=== PATIENT | female | born 1960 | race American Indian/Alaskan Native ===

== ENCOUNTER 2021-08-25 01:25 | Inpatient (IN) | payer BC ==
--- NOTE | 2021-08-25 01:49 | Emergency Department Report ---
ED Seizure HPI - General Stated Complaint: SEIZURE Time Seen by Provider: 08/25/21 01:40 Source: patient, family, EMS Mode of arrival: Stretcher Limitations: No Limitations - History of Present Illness Initial Comments: 60-year-old female with past medical history of hypertension and lupus presents to the hospital with possible new onset seizure. at the bedside. State s that they were lying in bed and patient had generalized shaking for approximately 5 to 10 minutes. EMS reports patient was postictal upon their arrival. Patient became more responsive in route to the hospital. She is currently drowsy with slow speech but oriented x3. She does not recall EMS ar rival to the home. She complains of a mild headache but otherwise denies any symptoms currently or preceding symptoms. She denies new medications, alcohol, or drug use. She did not bite her tongue or urinate on herself during episode. EMS Accu-Chek 95 - Related Data Allergies Allergy/AdvReac Type Severity Reaction Status Date / Time No Known Allergies Allergy Unverified 08/25/21 02:13 ED Review of Systems ROS: Stated complaint: SEIZURE Other details as noted in HPI Comment: All other systems reviewed and negative ED Physical Exam - Other Other exam information: General: No acute distress Head: Atraumatic Eyes: normal appearance ENT: Moist mucous membranes Neck: Normal appearance, no midline tenderness Chest: Clear to auscultation bilaterally CV: Regular rate and rhythm Abdomen: Soft, normal bowel sounds, nontender, nondistended, no rebound or guarding Back: Normal inspection Extremity: Normal inspection, full range of motion Neuro: Alert O x 3, no facial asymmetry, speech clear, equal handgrip and foot dorsiflexion Psych: Appropriate behavior Skin: No rash ED Course Vital Signs 08/25/21 03:21 Temperature 98.5 F Pulse Rate 95 H Respiratory 16 Rate Blood Pressure 179/105 [Left] O2 Sat by Pulse 99 Oximetry - Consultations Consultation #1: 08/25/21 03:09 case d/w DR Kemp tele neuro via phone, rec admission for MRI ED Medical Decision Making - Lab Data Result diagrams: 08/25/21 01:58 08/25/21 01:58 Lab Results 08/25/21 08/25/21 08/25/21 Range/Units 01:46 01:46 01:58 WBC 13.2 H (4.5-11.0) K/mm3 RBC 3.82 (3.65-5.03) M/mm3 Hgb 11.6 (10.1-14.3) gm/dl Hct 34.1 (30.3-42.9) % MCV 90 (79-97) fl MCH 30 (28-32) pg MCHC 34 (30-34) % RDW 13.8 (13.2-15.2) % Plt Count 272 (140-440) K/mm3 Lymph % (Auto) 17.8 (13.4-35.0) % [place] % (Auto) 4.9 (0.0-7.3) % Eos % (Auto) 0.8 (0.0-4.3) % Baso % (Auto) 0.2 (0.0-1.8) % Lymph # (Auto) 2.4 (1.2-5.4) K/mm3 [place] # (Auto) 0.6 (0.0-0.8) K/mm3 Eos # (Auto) 0.1 (0.0-0.4) K/mm3 Baso # (Auto) 0.0 (0.0-0.1) K/mm3 Seg Neutrophils % 76.3 H (40.0-70.0) % Seg Neutrophils # 10.1 H (1.8-7.7) K/mm3 Sodium (137-145) mmol/L Potassium (3.6-5.0) mmol/L Chloride (98-107) mmol/L Carbon Dioxide (22-30) mmol/L Anion Gap mmol/L BUN (7-17) mg/dL Creatinine (0.6-1.2) mg/dL Estimated GFR ml/min BUN/Creatinine Ratio % Glucose (65-100) mg/dL Calcium (8.4-10.2) mg/dL Magnesium (1.7-2.3) mg/dL Total Bilirubin (0.1-1.2) mg/dL AST (5-40) units/L ALT (7-56) units/L Alkaline Phosphatase (35-129) units/L Total Protein (6.3-8.2) g/dL Albumin (3.9-5) g/dL Albumin/Globulin Ratio % Urine Color Straw (Yellow) Urine Turbidity Clear (Clear) Urine pH 7.0 (5.0-7.0) Ur Specific [place] 1.012 (1.003-1.030) Urine Protein 30 mg/dl (Negative) mg/dL Urine Glucose (UA) Neg (Negative) mg/dL Urine Ketones Neg (Negative) mg/dL Urine Blood Neg (Negative) Urine Nitrite Neg (Negative) Urine Bilirubin Neg (Negative) Urine Urobilinogen < 2.0 (<2.0) mg/dL Ur Leukocyte Esterase Sm (Negative) Urine WBC (Auto) 2.0 (0.0-6.0) /HPF Urine RBC (Auto) 1.0 (0.0-6.0) /HPF U Epithel Cells (Auto) 7.0 (0-13.0) /HPF Hyaline Casts 2 /LPF Urine Mucus Few /HPF Urine Opiates Screen Negative Urine Methadone Screen Negative Ur Barbiturates Screen Negative Ur Phencyclidine Scrn Negative Ur Amphetamines Screen Negative U Benzodiazepines Scrn Negative Urine Cocaine Screen Negative Plasma/Serum Alcohol (0-0.07) % 08/25/21 08/25/21 08/25/21 Range/Units 01:58 01:58 01:58 WBC (4.5-11.0) K/mm3 RBC (3.65-5.03) M/mm3 Hgb (10.1-14.3) gm/dl Hct (30.3-42.9) % MCV (79-97) fl MCH (28-32) pg MCHC (30-34) % RDW (13.2-15.2) % Plt Count (140-440) K/mm3 Lymph % (Auto) (13.4-35.0) % [place] % (Auto) (0.0-7.3) % Eos % (Auto) (0.0-4.3) % Baso % (Auto) (0.0-1.8) % Lymph # (Auto) (1.2-5.4) K/mm3 [place] # (Auto) (0.0-0.8) K/mm3 Eos # (Auto) (0.0-0.4) K/mm3 Baso # (Auto) (0.0-0.1) K/mm3 Seg Neutrophils % (40.0-70.0) % Seg Neutrophils # (1.8-7.7) K/mm3 Sodium 141 (137-145) mmol/L Potassium 3.0 L (3.6-5.0) mmol/L Chloride 101.6 (98-107) mmol/L Carbon Dioxide 23 (22-30) mmol/L Anion Gap 19 mmol/L BUN 15 (7-17) mg/dL Creatinine 0.7 (0.6-1.2) mg/dL Estimated GFR > 60 ml/min BUN/Creatinine Ratio 21 % Glucose 127 H (65-100) mg/dL Calcium 9.2 (8.4-10.2) mg/dL Magnesium 1.80 (1.7-2.3) mg/dL Total Bilirubin 0.20 (0.1-1.2) mg/dL AST 31 (5-40) units/L ALT 8 (7-56) units/L Alkaline Phosphatase 79 (35-129) units/L Total Protein 8.1 (6.3-8.2) g/dL Albumin 4.2 (3.9-5) g/dL Albumin/Globulin Ratio 1.1 % Urine Color (Yellow) Urine Turbidity (Clear) Urine pH (5.0-7.0) Ur Specific [place] (1.003-1.030) Urine Protein (Negative) mg/dL Urine Glucose (UA) (Negative) mg/dL Urine Ketones (Negative) mg/dL Urine Blood (Negative) Urine Nitrite (Negative) Urine Bilirubin (Negative) Urine Urobilinogen (<2.0) mg/dL Ur Leukocyte Esterase (Negative) Urine WBC (Auto) (0.0-6.0) /HPF Urine RBC (Auto) (0.0-6.0) /HPF U Epithel Cells (Auto) (0-13.0) /HPF Hyaline Casts /LPF Urine Mucus /HPF Urine Opiates Screen Urine Methadone Screen Ur Barbiturates Screen Ur Phencyclidine Scrn Ur Amphetamines Screen U Benzodiazepines Scrn Urine Cocaine Screen Plasma/Serum Alcohol < 0.01 (0-0.07) % - EKG Data -: EKG Interpreted by Me EKG shows normal: sinus rhythm, ST-T waves (lvh with repol) Rate: normal (86) - EKG Data When compared to previous EKG there are: previous EKG unavailable - Radiology Data Radiology results: report reviewed CT HEAD WITHOUT CONTRAST INDICATION / CLINICAL INFORMATION: new onset seizure. TECHNIQUE: CT head was performed without administration of intravenous contrast. All CT scans at this location are performed using CT dose reduction for ALARA by means of automated exposure control. COMPARISON: None available. FINDINGS: CEREBRAL HEMISPHERES: There is no evidence of large territorial infarction or significant abnormality of zepeda-white matter differentiation. Ventricles within normal limits. No midline shift. Basal cisterns patent. HEMORRHAGE: None. CEREBELLUM / BRAINSTEM: No significant abnormality. ORBITS: No significant abnormality. SOFT TISSUES: No significant abnormality. SKULL: No significant abnormality. PARANASAL SINUSES / MASTOID AIR CELLS: Normal as visualized. ADDITIONAL FINDINGS: None. IMPRESSION: 1. No acute intracranial abnormality. - Medical Decision Making 60-year-old female presents to the hospital with new onset seizure. History of lupus. ED work-up reveals normal CT head and mild hypokalemia. P.o. potassium ordered. Patient provided IV Keppra. Given history of lupus she will be admitted to the hospital for further imaging/MRI brain to rule out acute pathology - Differential Diagnosis New onset seizure, intracranial abnormality, electrolyte abnl, arrhythmia Critical Care Time: No Critical care attestation.: If time is entered above; I have spent that time in minutes in the direct care of this critically ill patient, excluding procedure time. ED Disposition Clinical Impression: New onset seizure, Lupus, Hypokalemia Disposition: ADMITTED INPATIENT Is pt being admited?: Yes Condition: Stable Referrals: PRIMARY CAREMD [Primary Care Provider] - 3-5 Days Time of Disposition: 03:09
[2021-08-25 02:19] LABS: Basophils % (Auto) 0.2 % (0.0-1.8); Eosinophils # (Auto) 0.1 K/mm3 (0.0-0.4); Eosinophils % (Auto) 0.8 % (0.0-4.3); Hematocrit 34.1 % (30.3-42.9); Hemoglobin 11.6 gm/dl (10.1-14.3); Lymphocytes # (Auto) 2.4 K/mm3 (1.2-5.4); Lymphocytes % (Auto) 17.8 % (13.4-35.0); Mean Corpuscular HGB Conc 34 % (30-34); Mean Corpuscular Volume 90 fl (79-97); Monocytes # (Auto) 0.6 K/mm3 (0.0-0.8); Monocytes % (Auto) 4.9 % (0.0-7.3); Platelet Count 272 K/mm3 (140-440); Red Blood Count 3.82 M/mm3 (3.65-5.03); Red Cell Distribution Width 13.8 % (13.2-15.2)
--- NOTE | 2021-08-25 02:20 | Cat Scan Report ---
CT HEAD WITHOUT CONTRAST INDICATION / CLINICAL INFORMATION: new onset seizure. TECHNIQUE: CT head was performed without administration of intravenous contrast. All CT scans at this location are performed using CT dose reduction for ALARA by means of automated exposure control. COMPARISON: None available. FINDINGS: CEREBRAL HEMISPHERES: There is no evidence of large territorial infarction or significant abnormality of zepeda-white matter differentiation. Ventricles within normal limits. No midline shift. Basal ciste rns patent. HEMORRHAGE: None. CEREBELLUM / BRAINSTEM: No significant abnormality. ORBITS: No significant abnormality. SOFT TISSUES: No significant abnormality. SKULL: No significant abnormality. PARANASAL SINUSES / MASTOID AIR CELLS: Normal as visualized. ADDITIONAL FINDINGS: None. IMPRESSION: 1. No acute intracranial abnormality. Signer Name: Dell Henry II, MD Signed: 08/25/2021 2:16 AM Workstation Name: [id number]
[2021-08-25 02:34] LABS: Alanine Aminotransferase 8 units/L (7-56); Albumin 4.2 g/dL (3.9-5); Blood Urea Nitrogen 15 mg/dL (7-17); Calcium 9.2 mg/dL (8.4-10.2); Hemolysis Index 6
[2021-08-25 02:35] LABS: BUN/Creatinine Ratio 21
[2021-08-25] MEDS ORDERED: POTASSIUM CHLORIDE ER 20 MEQ TAB PO ONE (02:38)
[2021-08-25] MEDS ORDERED: levETIRAcetam 1000 MG/NS 0.75% 1,000 MG/100 ML BAG IV ONE (02:46)
[2021-08-25 02:52] LABS: Bilirubin,Urine NEG (Negative); Blood,Urine NEG (Negative); Color,Urine Straw (Yellow); Urobilinogen,Urine < 2.0 mg/dL (<2.0)
[2021-08-25 03:01] LABS: Amphetamine Screen,Urine Negative; Benzodiazepines Screen,Urine Negative; Cocaine Screen,Urine Negative; Methadone Screen,Urine Negative; Opiate Screen,Urine Negative
[2021-08-25 03:16] LABS: Hyaline Casts,Urine 2 /LPF; Mucus,Urine FEW /HPF
[2021-08-25 03:31] LABS: Cannabinoid Screen,Urine Positive
[2021-08-25] MEDS ORDERED: ALBUTEROL 2.5 MG/3 ML NEBU IH PRN (05:21)
[2021-08-25] MEDS ORDERED: MORPHINE 4 MG/1 ML INJ IV PRN (05:21)
[2021-08-25] MEDS ORDERED: MORPHINE 2 MG/1 ML INJ IV PRN (05:21)
--- NOTE | 2021-08-25 05:31 | History and Physical Report ---
History of Present Illness Date of examination: 08/25/21 Date of admission: 08/25/21 Chief complaint: Seizure History of present illness: 60-year-old female with history of hypertension and lupus and marijuana abuse was brought to the emergency room because of new onset seizure. Patient were lying in bed and patient had generalized shaking for approximately 5 to 10 minutes. EMS reports patient was postictal upon their arrival. Patient became more responsive in route to the hospital. She is currently drowsy with slow speech but oriented x3. She does not recall EMS arrival to the home. She complains of a mild headache but otherwise denies any symptoms currently or preceding symptoms. She denies new medications, alcohol, or drug use. She did not bite her tongue or urinate on herself during episode. EMS Accu-Chek 95 In the emergency room initial CT scan of the head shows no acute intracranial abnormality. Patient urine drug screen is positive for marijuana. Subsequently patient was seen and evaluated by telemetry neurology. Past History Past Medical History: hypertension, other (Lupus) Past Surgical History: No surgical history Social history: other (Marijuana abuse) Family history: no significant family history Medications and Allergies Allergies Allergy/AdvReac Type Severity Reaction Status Date / Time No Known Allergies Allergy Unverified 08/25/21 02:13 Review of Systems All systems: negative Constitutional: malaise, lethargy, other (Seizure) Exam - Constitutional Vitals: Temp Pulse Resp BP Pulse Ox 98.5 F 95 H 16 179/105 99 08/25/21 03:21 08/25/21 03:21 08/25/21 03:21 08/25/21 03:21 08/25/21 03:21 General appearance: Present: no acute distress, well-nourished - EENT Eyes: Present: PERRL ENT: hearing intact, clear oral mucosa - Neck Neck: Present: supple, normal ROM - Respiratory Respiratory effort: normal Respiratory: bilateral: CTA - Cardiovascular Heart Sounds: Present: S1 & S2. Absent: rub, click - Extremities Extremities: pulses symmetrical, No edema Peripheral Pulses: within normal limits - Abdominal General gastrointestinal: Present: soft, non-tender, non-distended, normal bowel sounds Female genitourinary: Present: normal - Integumentary Integumentary: Present: clear, warm, dry - Musculoskeletal Musculoskeletal: gait normal, strength equal bilaterally - Psychiatric Psychiatric: appropriate mood/affect, intact judgment & insight - Neurologic Neurologic: CNII-XII intact, moves all extremities Results - Labs CBC & Chem 7: 08/25/21 01:58 08/25/21 01:58 Labs: Laboratory Last Values WBC 13.2 K/mm3 (4.5-11.0) H 08/25/21 01:58 RBC 3.82 M/mm3 (3.65-5.03) 08/25/21 01:58 Hgb 11.6 gm/dl (10.1-14.3) 08/25/21 01:58 Hct 34.1 % (30.3-42.9) 08/25/21 01:58 MCV 90 fl (79-97) 08/25/21 01:58 MCH 30 pg (28-32) 08/25/21 01:58 MCHC 34 % (30-34) 08/25/21 01:58 RDW 13.8 % (13.2-15.2) 08/25/21 01:58 Plt Count 272 K/mm3 (140-440) 08/25/21 01:58 Lymph % (Auto) 17.8 % (13.4-35.0) 08/25/21 01:58 [place] % (Auto) 4.9 % (0.0-7.3) 08/25/21 01:58 Eos % (Auto) 0.8 % (0.0-4.3) 08/25/21 01:58 Baso % (Auto) 0.2 % (0.0-1.8) 08/25/21 01:58 Lymph # (Auto) 2.4 K/mm3 (1.2-5.4) 08/25/21 01:58 [place] # (Auto) 0.6 K/mm3 (0.0-0.8) 08/25/21 01:58 Eos # (Auto) 0.1 K/mm3 (0.0-0.4) 08/25/21 01:58 Baso # (Auto) 0.0 K/mm3 (0.0-0.1) 08/25/21 01:58 Seg Neutrophils % 76.3 % (40.0-70.0) H 08/25/21 01:58 Seg Neutrophils # 10.1 K/mm3 (1.8-7.7) H 08/25/21 01:58 Sodium 141 mmol/L (137-145) 08/25/21 01:58 Potassium 3.0 mmol/L (3.6-5.0) L 08/25/21 01:58 Chloride 101.6 mmol/L (98-107) 08/25/21 01:58 Carbon Dioxide 23 mmol/L (22-30) 08/25/21 01:58 Anion Gap 19 mmol/L 08/25/21 01:58 BUN 15 mg/dL (7-17) 08/25/21 01:58 Creatinine 0.7 mg/dL (0.6-1.2) 08/25/21 01:58 Estimated GFR > 60 ml/min 08/25/21 01:58 BUN/Creatinine Ratio 21 % 08/25/21 01:58 Glucose 127 mg/dL (65-100) H 08/25/21 01:58 Calcium 9.2 mg/dL (8.4-10.2) 08/25/21 01:58 Magnesium 1.80 mg/dL (1.7-2.3) 08/25/21 01:58 Total Bilirubin 0.20 mg/dL (0.1-1.2) 08/25/21 01:58 AST 31 units/L (5-40) 08/25/21 01:58 ALT 8 units/L (7-56) 08/25/21 01:58 Alkaline Phosphatase 79 units/L (35-129) 08/25/21 01:58 Total Protein 8.1 g/dL (6.3-8.2) 08/25/21 01:58 Albumin 4.2 g/dL (3.9-5) 08/25/21 01:58 Albumin/Globulin Ratio 1.1 % 08/25/21 01:58 Urine Color Straw (Yellow) 08/25/21 01:46 Urine Turbidity Clear (Clear) 08/25/21 01:46 Urine pH 7.0 (5.0-7.0) 08/25/21 01:46 Ur Specific [place] 1.012 (1.003-1.030) 08/25/21 01:46 Urine Protein 30 mg/dl mg/dL (Negative) 08/25/21 01:46 Urine Glucose (UA) Neg mg/dL (Negative) 08/25/21 01:46 Urine Ketones Neg mg/dL (Negative) 08/25/21 01:46 Urine Blood Neg (Negative) 08/25/21 01:46 Urine Nitrite Neg (Negative) 08/25/21 01:46 Urine Bilirubin Neg (Negative) 08/25/21 01:46 Urine Urobilinogen < 2.0 mg/dL (<2.0) 08/25/21 01:46 Ur Leukocyte Esterase Sm (Negative) 08/25/21 01:46 Urine WBC (Auto) 2.0 /HPF (0.0-6.0) 08/25/21 01:46 Urine RBC (Auto) 1.0 /HPF (0.0-6.0) 08/25/21 01:46 U Epithel Cells (Auto) 7.0 /HPF (0-13.0) 08/25/21 01:46 Hyaline Casts 2 /LPF 08/25/21 01:46 Urine Mucus Few /HPF 08/25/21 01:46 Urine Opiates Screen Negative 08/25/21 01:46 Urine Methadone Screen Negative 08/25/21 01:46 Ur Barbiturates Screen Negative 08/25/21 01:46 Ur Phencyclidine Scrn Negative 08/25/21 01:46 Ur Amphetamines Screen Negative 08/25/21 01:46 U Benzodiazepines Scrn Negative 08/25/21 01:46 Urine Cocaine Screen Negative 08/25/21 01:46 U Marijuana (THC) Screen Positive 08/25/21 01:46 Drugs of Abuse Note Disclamer 08/25/21 01:46 Plasma/Serum Alcohol < 0.01 % (0-0.07) 08/25/21 01:58 - Imaging and Cardiology CT Scan - head: report reviewed Assessment and Plan VTE prophylaxis?: Mechanical Plan of care discussed with patient/family: Yes - Patient Problems (1) New onset seizure Current Visit: Yes Status: Acute Plan to address problem: Admit the patient to the medical telemetry. NPO. Seizure precaution. Keppra 500 mg IV every 12 hours. EEG. Neurology evaluation (2) Hypertension Current Visit: Yes Status: Acute Plan to address problem: Hydralazine 10 mg IV every 6 hours as needed. We continue the home medication (3) Hypokalemia Current Visit: Yes Status: Acute Plan to address problem: Potassium is supplemented. Recheck the BMP in the morning (4) Lupus Current Visit: Yes Status: Acute Plan to address problem: Stable. We will continue the home medication (5) DVT prophylaxis Current Visit: Yes Status: Acute Plan to address problem: SCD for DVT prophylaxis. Pepcid 20 mg IV every 12 hours for GI prophylaxis. Patient is a full code
[2021-08-25] MEDS: ACETAMINOPHEN 325 MG TAB PO PRN (09:32)
[2021-08-25] MEDS: ONDANSETRON 4 MG/2 ML INJ IV PRN ×2 (09:32→18:07)
--- NOTE | 2021-08-25 10:07 | Electrocardiograph Report ---
[facility] Test Date: 2021-08-25 Test Time: 02:49:56 Pat Name: IRINA JONES Department: Room: [place] [address] Gender: F Inspector Optical Instrument: elmira : 1960 Requested By: SOLA LOPEZ Order Number: [id number] Reading MD: Kulwant Iraheta Measurements Intervals [place] Rate: 86 P: 48 MD: 205 QRS: -45 QRSD: 88 T: 82 QT: 381 QTc: 453 Interpretive Statements Sinus rhythm Atrial premature complex Borderline prolonged MD interval Probable left atrial enlargement Left anterior fascicular block LVH with secondary repolarization abnormality No previous ECG available for comparison Electronically Signed On 08-25-2021 10:06:59 EDT by Kulwant Iraheta
[2021-08-25] MEDS: D5W/0.45% NACL 1,000 ML IV SCH ×2 (10:23→23:45)
[2021-08-25] MEDS: FAMOTIDINE 20 MG/2 ML INJ IV SCH ×2 (10:29→23:46)
[2021-08-25] MEDS: levETIRAcetam 500 MG in DEXTROSE 5% IN WATER 100 ML IV SCH ×2 (10:29→23:45)
[2021-08-25] MEDS ORDERED: hydrALAZINE 20 MG/1 ML INJ IV ONE (11:22)
--- NOTE | 2021-08-25 15:37 | Consultation ---
History of Present Illness Consult date: 08/25/21 Reason for Consult: Seizure History of present illness: 60-year-old female with history of hypertension and lupus and marijuana abuse was brought to the emergency room because of new onset seizure. Patient were lying in bed and patient had generalized shaking for approximately 5 to 10 minutes. EMS reports patient was postictal upon their arrival. Patient became more responsive in route to the hospital. She is currently drowsy with slow speech but oriented x3. She does not recall EMS arrival to the home. She complains of a mild headache but otherwise denies any symptoms currently or preceding symptoms. She denies new medications, alcohol, or drug use. She did not bite her tongue or urinate on herself during episode. EMS Accu-Chek 95 In the emergency room initial CT scan of the head shows no acute intracranial abnormality. Patient urine drug screen is positive for marijuana. Patient reports no complains now. Past History Past Medical History: hypertension, other (Lupus) Past Surgical History: No surgical history Social history: other (Marijuana abuse) Family history: no significant family history Medications and Allergies Allergies Allergy/AdvReac Type Severity Reaction Status Date / Time No Known Allergies Allergy Unverified 08/25/21 02:13 Home Medications Medication Instructions Recorded Confirmed Last Taken Type Metoprolol [Lopressor TAB] 50 mg PO QDAY 08/25/21 08/25/21 Unknown History Active Meds: Active Medications Acetaminophen (Acetaminophen 325 Mg Tab) 650 mg PO Q4H PRN PRN Reason: Pain MILD(1-3)/Fever >100.5/ROSS Last Admin: 08/25/21 09:32 Dose: 650 mg Albuterol (Albuterol 2.5 Mg/3 Ml Nebu) 2.5 mg IH Q3HRT PRN PRN Reason: Shortness Of Breath Famotidine (Famotidine 20 Mg/2 Ml Inj) 20 mg IV BID ADAMS Last Admin: 08/25/21 10:29 Dose: 20 mg Dextrose/Sodium Chloride (D5/0.45ns) 1,000 mls @ 100 mls/hr IV DIRECT ADAMS Last Admin: 08/25/21 10:23 Dose: 100 mls/hr Levetiracetam 500 mg/ Dextrose 105 mls @ 400 mls/hr IV Q12HR ADAMS Last Admin: 08/25/21 10:29 Dose: 400 mls/hr Morphine Sulfate (Morphine 2 Mg/1 Ml Inj) 2 mg IV Q4H PRN PRN Reason: Pain, Moderate (4-6) Morphine Sulfate (Morphine 4 Mg/1 Ml Inj) 4 mg IV Q4H PRN PRN Reason: Pain , Severe (7-10) Last Admin: 08/25/21 09:32 Dose: 4 mg Ondansetron HCl (Ondansetron 4 Mg/2 Ml Inj) 4 mg IV Q8H PRN PRN Reason: Nausea And Vomiting Last Admin: 08/25/21 09:32 Dose: 4 mg Sodium Chloride (Sodium Chloride 0.9% 10 Ml Flush Syringe) 10 ml IV BID ADAMS Sodium Chloride (Sodium Chloride 0.9% 10 Ml Flush Syringe) 10 ml IV PRN PRN PRN Reason: LINE FLUSH Physical Examination - Vital Signs Vital Signs: Vital Signs Temp Pulse Resp BP Pulse Ox 98.5 F 95 H 16 179/105 99 08/25/21 03:21 08/25/21 03:21 08/25/21 03:21 08/25/21 03:21 08/25/21 03:21 - Physical Exam Narrative exam: The patient is alert , moves all 4 extremities , DTRs not done , no nystagmus . finger to nose is normal . Results - Laboratory Findings CBC and BMP: 08/25/21 01:58 08/25/21 01:58 Abnormal Lab Findings: Abnormal Labs 08/25/21 08/25/21 01:58 01:58 WBC 13.2 H Seg Neutrophils % 76.3 H Seg Neutrophils # 10.1 H Potassium 3.0 L Glucose 127 H Assessment and Plan 1. New onset Seizure - needs further evaluation . 2. Headache Secondary to Seizure . 3. Head CT negative Plan : 1. MRI Brain no contrast 2. Agree with Keppra 500mg 1 tab BID. 3. If possible EEG in hospital 4. No driving for [address] Centeno
--- NOTE | 2021-08-25 16:43 | Event Note ---
Date: 08/25/21 Chart reviewed and patient reevaluated \Patient is stable New onset seizures Rule out CVA
[2021-08-25] MEDS: hydrALAZINE 20 MG/1 ML INJ IV PRN ×2 (17:10→23:46)
[2021-08-25] MEDS: VALSARTAN 160MG TAB PO SCH ×2 (18:25→22:00)
[2021-08-25] MEDS: carvediloL 6.25 MG TAB PO SCH ×2 (18:25→22:00)
[2021-08-25] MEDS ORDERED: METOCLOPRAMIDE 10 MG/2 ML INJ IV PRN (19:26)
[2021-08-26 06:21] LABS: Basophils % (Auto) 0.5 % (0.0-1.8); Blood Urea Nitrogen 8 mg/dL (7-17); Calcium 9.3 mg/dL (8.4-10.2); Hematocrit 37.8 % (30.3-42.9); Hemoglobin 12.6 gm/dl (10.1-14.3); Hemolysis Index 8; Lymphocytes # (Auto) 1.1 K/mm3 (1.2-5.4); Lymphocytes % (Auto) 13.3 % (13.4-35.0); Mean Corpuscular HGB Conc 33 % (30-34); Mean Corpuscular Volume 90 fl (79-97); Monocytes # (Auto) 0.4 K/mm3 (0.0-0.8); Monocytes % (Auto) 4.8 % (0.0-7.3); Platelet Count 325 K/mm3 (140-440); Red Blood Count 4.21 M/mm3 (3.65-5.03)
[2021-08-26 06:22] LABS: BUN/Creatinine Ratio 16
[2021-08-26] MEDS ORDERED: hydrALAZINE 20 MG/1 ML INJ IV ONE (06:45)
[2021-08-26] MEDS: FAMOTIDINE 20 MG/2 ML INJ IV SCH ×2 (09:43→20:46)
[2021-08-26] MEDS: levETIRAcetam 500 MG in DEXTROSE 5% IN WATER 100 ML IV SCH ×2 (09:43→21:51)
[2021-08-26] MEDS: VALSARTAN 160MG TAB PO SCH ×2 (09:43→20:45)
[2021-08-26] MEDS: carvediloL 6.25 MG TAB PO SCH ×2 (09:44→20:45)
[2021-08-26] MEDS: ACETAMINOPHEN 325 MG TAB PO PRN (09:47)
[2021-08-26] MEDS: D5W/0.45% NACL 1,000 ML IV SCH (16:59)
[2021-08-27] MEDS: carvediloL 6.25 MG TAB PO SCH ×3 (06:20→21:56)
[2021-08-27] MEDS: FAMOTIDINE 20 MG/2 ML INJ IV SCH (06:21)
[2021-08-27] MEDS: VALSARTAN 160MG TAB PO SCH ×3 (06:21→21:56)
[2021-08-27] MEDS: D5W/0.45% NACL 1,000 ML IV SCH ×2 (06:52→10:35)
[2021-08-27] MEDS: FAMOTIDINE 20 MG TAB PO SCH ×2 (10:30→21:58)
[2021-08-27] MEDS: levETIRAcetam 500 MG in DEXTROSE 5% IN WATER 100 ML IV SCH (10:35)
[2021-08-27] MEDS: hydrALAZINE 20 MG/1 ML INJ IV PRN ×2 (14:20→22:02)
--- NOTE | 2021-08-27 16:53 | Progress Note ---
Assessment and Plan Assessment and Plan VTE prophylaxis?: Mechanical Plan of care discussed with patient/family: Yes - Patient Problems (1) New onset seizure Current Visit: Yes Status: Acute Plan to address problem: Admit the patient to the medical telemetry. NPO. Seizure precaution. Keppra 500 mg IV every 12 hours. EEG. Neurology evaluation (2) Hypertensive emergency Current Visit: Yes Status: Acute Plan to address problem: Hydralazine 10 mg IV every 6 hours as needed. We continue the home medication valsartan 160 twice daily and carvedilol 6.25 twice daily added (3) Hypokalemia Current Visit: Yes Status: Acute Plan to address problem: Potassium is supplemented. Recheck the BMP in the morning (4) Lupus Current Visit: Yes Status: Acute Plan to address problem: Stable. We will continue the home medication (5) DVT prophylaxis Current Visit: Yes Status: Acute Plan to address problem: SCD for DVT prophylaxis. Pepcid 20 mg IV every 12 hours for GI prophylaxis. Patient is a full code Subjective Date of service: 08/26/21 Principal diagnosis: Hypertensive emergency, seizure disorder Interval history: 60-year-old female with history of hypertension and lupus and marijuana abuse was brought to the emergency room because of new onset seizure. Patient were lying in bed and patient had generalized shaking for approximately 5 to 10 minutes. EMS reports patient was postictal upon their arrival. Patient became more responsive in route to the hospital. She is currently drowsy with slow speech but oriented x3. She does not recall EMS arrival to the home. She complains of a mild headache but otherwise denies any symptoms currently or preceding symptoms. She denies new medications, alcohol, or drug use. She did not bite her tongue or urinate on herself during episode. EMS Accu-Chek 95 In the emergency room initial CT scan of the head shows no acute intracranial abnormality. Patient urine drug screen is positive for marijuana. Subsequently patient was seen and evaluated by telemetry neurology. 08/26/2020 No seizures Still blood pressure better controlled Objective - Constitutional Vitals: Vital Signs - 12hr 08/27/21 08/27/21 08/27/21 06:00 08:27 09:05 Temperature 98.2 F 98.3 F Pulse Rate 76 80 Respiratory 17 18 Rate Blood Pressure 156/101 Blood Pressure 151/95 [Left] O2 Sat by Pulse 98 95 95 Oximetry 08/27/21 08/27/21 08/27/21 10:38 10:39 14:20 Temperature Pulse Rate 82 82 79 Respiratory Rate Blood Pressure 156/98 156/98 170/109 Blood Pressure [Left] O2 Sat by Pulse Oximetry General appearance: Present: no acute distress, well-nourished - EENT Eyes: PERRL, EOM intact ENT: hearing intact, clear oral mucosa Ears: bilateral: normal - Neck Neck: supple, normal ROM - Respiratory Respiratory effort: normal Respiratory: bilateral: CTA - Breasts Breasts: normal - Cardiovascular Rhythm: regular Heart Sounds: Present: S1 & S2. Absent: gallop, rub Extremities: pulses intact, No edema, normal color, Full ROM - Gastrointestinal General gastrointestinal: Present: soft, non-tender, non-distended, normal bowel sounds - Genitourinary Female genitourinary: normal - Integumentary Integumentary: clear, warm, dry - Musculoskeletal Musculoskeletal: 1, strength equal bilaterally - Neurologic Neurologic: moves all extremities - Psychiatric Psychiatric: memory intact, appropriate mood/affect, intact judgment & insight - Labs CBC & Chem 7: 08/26/21 05:45 08/26/21 05:45
--- NOTE | 2021-08-27 17:48 | Discharge Summary ---
Providers - Providers Date of Admission: 08/25/21 05:21 Date of discharge: 08/27/21 Attending physician: DOMINIC SOLIS 08/25/21 05:26 Consult to Physician [CONS] Routine Comment: Consulting Provider: KIM PHILLIPS Physician Instructions: Reason For Exam: seizure Primary care physician: [employer] Hospitalization Reason for admission: Can you can Continue (oxygen teaching advised Condition: Stable Hospital course: Subjective Date of service: 08/27/21 Principal diagnosis: Hypertensive emergency, seizure disorder Interval history: 60-year-old female with history of hypertension and lupus and marijuana abuse was brought to the emergency room because of new onset seizure. Patient were lying in bed and patient had generalized shaking for approximately 5 to 10 minutes. EMS reports patient was postictal upon their arrival. Patient became more responsive in route to the hospital. She is currently drowsy with slow speech but oriented x3. She does not recall EMS arrival to the home. She complains of a mild headache but otherwise denies any symptoms currently or preceding symptoms. She denies new medications, alcohol, or drug use. She did not bite her tongue or urinate on herself during episode. EMS Accu-Chek 95 In the emergency room initial CT scan of the head shows no acute intracranial abnormality. Patient urine drug screen is positive for marijuana. Subsequently patient was seen and evaluated by telemetry neurology. 08/26/2020 No seizures Still blood pressure better controlled 08/27/2021 No seizures Blood pressure better controlled slightly high Assessment and Plan VTE prophylaxis?: Mechanical Plan of care discussed with patient/family: Yes - Patient Problems (1) New onset seizure Current Visit: Yes Status: Acute Plan to address problem: Admit the patient to the medical telemetry. NPO. Seizure precaution. Keppra 500 mg IV every 12 hours. EEG. Neurology evaluation (2) Hypertensive emergency Current Visit: Yes Status: Acute Plan to address problem: Hydralazine 10 mg IV every 6 hours as needed. We continue the home medication valsartan 160 twice daily and carvedilol 6.25 twice daily added (3) Hypokalemia Current Visit: Yes Status: Acute Plan to address problem: Potassium is supplemented. Recheck the BMP in the morning (4) Lupus Current Visit: Yes Status: Acute Plan to address problem: Stable. We will continue the home medication (5) DVT prophylaxis Current Visit: Yes Status: Acute Plan to address problem: SCD for DVT prophylaxis. Pepcid 20 mg IV every 12 hours for GI prophylaxis. Patient is a full code Disposition: 01 HOME / SELF CARE / HOMELESS Final Discharge Diagnosis (Prints w/discharge instructions): Hypertensive emergency. New onset seizure disorder. Hypokalemia - Discharge Diagnoses (1) Hypertension Status: Acute (2) Hypokalemia Status: Acute (3) Lupus Status: Acute (4) New onset seizure Status: Acute Core Measure Documentation - Palliative Care Palliative Care/ Comfort Measures: Not Applicable - Core Measures Any of the following diagnoses?: none Exam - Constitutional Vitals: Temp Pulse Resp BP Pulse Ox 98.0 F 79 18 151/90 98 08/27/21 15:55 08/27/21 14:20 08/27/21 08:27 08/27/21 15:55 08/27/21 10:41 General appearance: Present: no acute distress, well-nourished - EENT Eyes: Present: PERRL ENT: hearing intact, clear oral mucosa - Neck Neck: Present: supple, normal ROM - Respiratory Respiratory effort: normal Respiratory: bilateral: CTA - Cardiovascular Heart rate: 78 Rhythm: regular Heart Sounds: Present: S1 & S2. Absent: rub, click - Extremities Extremities: pulses symmetrical, No edema Peripheral Pulses: within normal limits - Abdominal General gastrointestinal: Present: soft, non-tender, non-distended, normal bowel sounds Female genitourinary: Present: normal - Integumentary Integumentary: Present: clear, warm, dry - Musculoskeletal Musculoskeletal: gait normal, strength equal bilaterally - Psychiatric Psychiatric: appropriate mood/affect, intact judgment & insight - Neurologic Neurologic: CNII-XII intact, moves all extremities Plan Activity: no restrictions Diet: low cholesterol, low salt Follow up with: KAREEM GRUBER MD [Primary Care Provider] - 3-5 Days NESTOR GAMA MD [Staff Physician] - 7 Days
[2021-08-27] MEDS ORDERED: levETIRAcetam 500 MG TAB PO SCH (22:00)
[2021-08-28 05:51] VITALS: BP 142/96
== END 2021-08-28 10:14 | disposition home or self-care (01) | DRG 101 ==
LOC: ED 01:25 → 4A 05:21
PROVIDERS: ADMIT Hospitalist; ATTEND Internal Medicine
DX: G40.909 Epilepsy, unspecified, not intractable, without status epilepticus (principal); I16.1 Hypertensive emergency; E87.6 Hypokalemia; M32.9 Systemic lupus erythematosus, unspecified; I10 Essential (primary) hypertension
CPT/HCPCS: 36415; 70450; 80048; 80053; 80307; 80320; 81001; 83735; 85025; 93005; 95819; G0378; J3490; J7060; J7070; G0480; J0360; J1953; J2270; J2405